=== PATIENT | female | born 1995 | race Caucasian/White ===

== ENCOUNTER 2019-03-29 07:43 | Outpatient (CLI) | payer OTHER ==
[~2019-03-29] VITALS: Ht 162.6 cm; Wt 70.5 kg
[2019-03-29 08:25] VITALS: BP 99/63; PULSE 74; TEMP 98
[2019-03-29 10:00] VITALS: BP 108/63; PULSE 83; TEMP 98
[2019-03-29 10:15] VITALS: BP 102/58; PULSE 72; TEMP 98
[2019-03-29 10:30] VITALS: BP 100/58; PULSE 78; TEMP 98
[2019-03-29 10:45] VITALS: BP 108/58; PULSE 83; TEMP 98
[2019-03-29 11:00] VITALS: BP 102/78; PULSE 83; TEMP 98
--- NOTE | 2019-03-29 11:12 | NUR ---
INT discontinued intact. Discharge instructions given. Transferred to private car by [email or web address]
== END 2019-03-29 11:15 | disposition home or self-care (01) ==
LOC: COL.CAR 07:43
DX: R07.9 Chest pain, unspecified (principal); E78.00 Pure hypercholesterolemia, unspecified; I10 Essential (primary) hypertension; R00.0 Tachycardia, unspecified; R00.2 Palpitations; R42 Dizziness and giddiness